=== PATIENT | male | born 1960 | race Caucasian/White ===

== ENCOUNTER 2023-04-20 09:44 | Observation (INO) | payer BC ==
[2023-04-20] MEDS ORDERED: diphenhydrAMINE 50 MG/ML VIAL ONE (10:38)
[2023-04-20] MEDS ORDERED: Metoclopramide HCl 10 MG/2 ML VIAL ONE (10:39)
[2023-04-20 10:42] LABS: #Eosinphils 0.2 10x3/uL (0.0-0.5); #Monocytes 0.8 10x3/uL (0.0-1.1); #Neutrophils 7.8 10x3/uL (1.5-8.4); %Basophils 0.3 % (0.0-2.0); %Eosinophils 1.6 % (0.0-6.0); %Lymphocytes 18.1 % (18.0-47.0); %Monocytes 7.7 % (0.0-10.0); %Neutrophils 71.6 % (40.0-75.0); Hematocrit 43.6 % (38.8-50.0); Hemoglobin 15.6 g/dL (13.5-17.5); Mean Corpuscular HGB CONC 35.8 g/dL (32.0-36.0); Mean Corpuscular Hemoglobin 33.5 pg (27.0-33.0); Mean Corpuscular Volume 93.8 fl (81.2-95.1); Mean Platelet Volume 9.4 fl (7.4-10.4); Platelet Count 435 10x3/uL (150-450); RBC Distribution Width 11.3 % (11.5-14.5); Red Blood Cell (RBC) Count 4.65 10x6/uL (4.32-5.72); White Blood Cell (WBC) Count 10.9 10x3/uL (3.5-10.5)
[2023-04-20 11:02] LABS: ALT (SGPT) 17 U/L (8-55); AST (SGOT) 18 U/L (5-34); Albumin 4.1 g/dL (3.4-4.8); Alkaline Phosphatase 123 U/L (40-110); Anion Gap 15 mmol/L (10-20); BUN (Urea Nitrogen) 8 mg/dL (8.4-25.7); Bilirubin, Total 0.8 mg/dL (0.2-1.2); Calc. Creatinine Clearance 0 mL/min (70-130); Carbon Dioxide 28 mmol/L (23-31); Chloride 95 mmol/L (98-107); Estimated GFR 96; Globulin 4.4 g/dL (2.4-3.5); Glucose 393 mg/dL (80-115); Potassium 5.1 mmol/L (3.5-5.1); Protein, Total 8.5 g/dL (5.8-8.1); Sodium 133 mmol/L (136-145)
[2023-04-20] MEDS ORDERED: Ketorolac Tromethamine 30 MG/ML VIAL ONE (12:47)
[2023-04-20] MEDS ORDERED: Magnesium 2 GM/50 ML BAG (IN WATER) ONE (12:47)
[2023-04-20] MEDS ORDERED: Dexamethasone 10 MG/ML VIAL ONE (14:33)
[2023-04-20] MEDS ORDERED: Lisinopril 5 MG TAB PO SCH (15:30)
[2023-04-20] MEDS ORDERED: Oseltamivir 75 MG CAP PO SCH (16:00)
[2023-04-20] MEDS ORDERED: carBAMazepine 200 MG TAB PO SCH (16:15)
[2023-04-20] MEDS ORDERED: Naproxen 500 MG TAB PO PRN (19:52)
[2023-04-20] MEDS ORDERED: Metoclopramide HCl 10 MG TAB PO PRN (19:53)
[2023-04-20] MEDS ORDERED: Acetaminophen 325 MG TAB PO PRN (19:53)
[2023-04-20] MEDS ORDERED: Ondansetron ODT 4 MG TAB PO PRN (19:54)
[2023-04-20] MEDS ORDERED: Senokot S 8.6-50 MG TAB PO PRN (19:54)
[2023-04-20] MEDS ORDERED: Dextrose 50% Abboject 50 ML SYRINGE SLOW IVP PRN (19:56)
[2023-04-20] MEDS ORDERED: Glucagon 1 MG/ML KIT IM PRN (19:56)
[2023-04-20] MEDS ORDERED: Dextrose 5% in Water 1,000 ML IV PRN (19:56)
[2023-04-20] MEDS: Sodium Chloride 0.9% 1,000 ML IV SCH (20:33)
[2023-04-20] MEDS: carBAMazepine 200 MG TAB PO SCH (20:37)
[2023-04-20] MEDS: Morphine 4 MG/ML VIAL SLOW IVP PRN (20:40)
[2023-04-20] MEDS: Insulin Regular 300 UNITS/3 ML VIAL SC PRN (20:56)
[2023-04-20 21:50] VITALS: BMI 29.7
[2023-04-21] MEDS: Guaifenesin DM 100-10/5 ML UDCUP PO PRN ×2 (03:09→11:17)
[2023-04-21] MEDS: Insulin Regular 300 UNITS/3 ML VIAL SC PRN ×4 (05:22→22:42)
[2023-04-21] MEDS: Morphine 4 MG/ML VIAL SLOW IVP PRN (08:15)
[2023-04-21] MEDS ORDERED: Naproxen 500 MG TAB PO PRN (08:15)
[2023-04-21] MEDS: Sodium Chloride 0.9% 1,000 ML IV SCH ×2 (08:17→22:17)
[2023-04-21] MEDS: carBAMazepine 200 MG TAB PO SCH ×2 (08:17→11:18)
[2023-04-21] MEDS ORDERED: FLU VACC QS2023-24(6MOS UP)/PF 60 MCG/0.5 ML SYRINGE IM ONE (09:00)
[2023-04-21] MEDS ORDERED: Lisinopril 5 MG TAB PO SCH (09:15)
[2023-04-21] MEDS ORDERED: metFORMIN 500 MG TAB PO SCH (09:15)
[2023-04-21] MEDS ORDERED: carBAMazepine 200 MG TAB PO SCH (09:15)
[2023-04-21] MEDS: Acetaminophen 325 MG TAB PO SCH ×4 (09:39→22:16)
[2023-04-21] MEDS: Naproxen 500 MG TAB PO SCH ×2 (11:16→19:13)
[2023-04-21] MEDS ORDERED: Gabapentin 300 MG CAP PO SCH (12:45)
[2023-04-21] MEDS: Metoclopramide HCl 10 MG/2 ML VIAL IVP SCH ×2 (14:03→22:16)
[2023-04-21] MEDS ORDERED: metFORMIN XR 500 MG ER.TAB PO SCH (17:00)
[2023-04-21] MEDS: metFORMIN 500 MG TAB PO SCH (17:40)
[2023-04-21] MEDS: Gabapentin 300 MG CAP PO SCH (22:17)
[2023-04-22] MEDS: Acetaminophen 325 MG TAB PO SCH ×3 (01:48→09:31)
[2023-04-22] MEDS: Naproxen 500 MG TAB PO SCH ×2 (03:02→11:34)
[2023-04-22] MEDS: Insulin Regular 300 UNITS/3 ML VIAL SC PRN ×3 (03:44→11:19)
[2023-04-22] MEDS: Metoclopramide HCl 10 MG/2 ML VIAL IVP SCH (06:33)
[2023-04-22] MEDS ORDERED: carBAMazepine 200 MG TAB PO SCH (09:00)
[2023-04-22] MEDS ORDERED: Aspirin 81 mg Enteric Coated Tablet PO SCH (09:00)
[2023-04-22] MEDS ORDERED: Lisinopril 5 MG TAB PO SCH (09:00)
[2023-04-22] MEDS ORDERED: Atorvastatin Calcium 10 MG TAB PO SCH (09:00)
[2023-04-22 09:30] VITALS: BP 164/77; TEMP 98.4
[2023-04-22] MEDS: Guaifenesin DM 100-10/5 ML UDCUP PO PRN (09:30)
[2023-04-22] MEDS: Gabapentin 300 MG CAP PO SCH (09:31)
[2023-04-22] MEDS: metFORMIN 500 MG TAB PO SCH (09:32)
== END 2023-04-22 11:43 | disposition home or self-care (01) ==
LOC: CSHERS 09:44 → CSHTELE 20:08
PROVIDERS: ADMIT Family Medicine; ATTEND Internal Medicine
DX: G50.0 Trigeminal neuralgia (principal); J10.1 Influenza due to other identified influenza virus with other respiratory manifestations; E87.1 Hypo-osmolality and hyponatremia; I10 Essential (primary) hypertension; E11.9 Type 2 diabetes mellitus without complications; E78.5 Hyperlipidemia, unspecified; F17.220 Nicotine dependence, chewing tobacco, uncomplicated; Z79.82 Long term (current) use of aspirin; Z79.84 Long term (current) use of oral hypoglycemic drugs; Z79.899 Other long term (current) drug therapy
CPT/HCPCS: 36416; 70450; 80053; 83735; 85025; 90471; 90686; 93005; 96375; 96376; G0008; G0378; J1100; J1200; J1815; J1885; J2270; J2765; J3475; J7050